=== PATIENT | female | born 1995 | race Caucasian/White ===

== ENCOUNTER 2024-10-02 09:34 | Emergency (ER) | payer OTHER ==
[~2024-10-02] VITALS: Ht 165.1 cm; Wt 119.0 kg
[~2024-10-02 09:34] MED LIST: FERR325T6 MT; IBUP-2030 MT
[2024-10-02 09:54] VITALS: TEMP 36.7; O2SAT 99
[2024-10-02 17:38] VITALS: BP 123/90; PULSE 71; RESP 16; O2SAT 100
== END 2024-10-02 17:41 | disposition home or self-care (01) ==
LOC: ER 09:34
DX: T81.31XA Disruption of external operation (surgical) wound, not elsewhere classified, initial encounter (principal); Y92.89 Other specified places as the place of occurrence of the external cause
CPT/HCPCS: 99281; 99282